=== PATIENT | male | born 1960 | race Caucasian/White ===

== ENCOUNTER → 2017-10-17 | Outpatient (CLI) | payer BC ==
[~2017-10-17] MED LIST: BROMOCRIPTINE2.5 MG PO; CARDI-OMEGA1000 MG PO; CO Q-1050 MG PO; LOVASTATIN10 MG PO; LOW DOSE ASPIRI81 MG PO; SYNTHROID0.175 MG PO; TESTIM1% TP; [UNRECOGNIZED DRUG - OTHER] PO
== END ==
LOC: COL.RAD 10:10
DX: E23.0 Hypopituitarism (principal); E22.1 Hyperprolactinemia; Z86.39 Personal history of other endocrine, nutritional and metabolic disease
CPT/HCPCS: A9585